=== PATIENT | female | born 1980 | race Caucasian/White ===

== ENCOUNTER 2021-10-25 12:34 | Outpatient (CLI) | payer BC | END 2021-10-25 12:35 | disposition home or self-care (01) | LOC: CSHMAMMO 12:34 | PROVIDERS: ATTEND Obstetrics & Gynecology | DX: Z12.31 Encounter for screening mammogram for malignant neoplasm of breast (principal); Z80.3 Family history of malignant neoplasm of breast | CPT/HCPCS: 77063; 77067 ==

== ENCOUNTER 2024-02-23 09:20 | Outpatient (CLI) | payer BC | END 2024-02-23 09:21 | disposition home or self-care (01) | LOC: CSHMAMMO 09:20 | PROVIDERS: ATTEND Family Medicine | DX: N64.89 Other specified disorders of breast (principal); N60.01 Solitary cyst of right breast | CPT/HCPCS: G0279 ==